=== PATIENT | male | born 1945 | race Two or more races ===

== ENCOUNTER 2019-12-20 13:18 | Inpatient (IN) | payer OTHER ==
[~2019-12-20] VITALS: Ht 180.3 cm; Wt 101.1 kg
[2019-12-20] MEDS ORDERED: cefTRIAXone 1GM/50ML D5W 50 ML IV ONE (13:30)
[2019-12-20] MEDS ORDERED: FUROSEMIDE 40 MG/4 ML VIAL IV ONE (13:30)
[2019-12-20 15:21] LABS: Basophils # (auto) 0 10 ^3/uL (0-0.2); Basophils % (auto) 0.3 % (0.0-2.0); Eosinophils # (auto) 0.1 10 ^3/uL (0-0.8); Hemoglobin 12.6 g/dL (13.5-17.5); Monocytes # (auto) 1.2 10 ^3/uL (0-1.3); White Blood Cell 13.1 10^3/uL (4.4-10.8)
[2019-12-20 15:23] LABS: Eosinophils % (auto) 0.4 % (0.0-7.0); Hematocrit 39.3 % (41.0-53.0); Lymphocytes # (auto) 0.9 10 ^3/uL (0.4-5.4); Lymphocytes % (auto) 6.8 % (10.0-50.0); Mean Corpuscular Hemoglobin 23.8 pg (28.0-32.0); Mean Corpuscular Volume 74.3 fL (80.0-100.0); Monocytes % (auto) 9.4 % (0.0-12.0); Neutrophils # (auto) 10.9 10 ^3/uL (1.6-8.6); Neutrophils % (auto) 83.1 % (37.0-80.0); Nucleated Red Blood Cells % 0.1 %; Platelet Count (auto) 338 10^3/uL (140-450); Red Blood Cells 5.28 10^6/uL (4.5-5.90); Red Cell Distribution Width 16.2 % (11.8-14.3)
[2019-12-20 15:32] LABS: Anion Gap 6 (5-15); Blood Urea Nitrogen 22 mg/dL (7-18); Calcium 8.4 mg/dL (8.5-10.1); Carbon Dioxide 26 mmol/L (21-32); Chloride 99 mmol/L (98-107); Glucose 268 mg/dL (74-106); INR 1.26 (0.9-1.15); Potassium 4.5 mmol/L (3.5-5.1); Sodium 131 mmol/L (136-145)
[2019-12-20 15:40] LABS: Alanine Aminotransferase 32 U/L (16-61); Alkaline Phosphatase 276 U/L (45-117); Aspartate Aminotransferase 31 U/L (15-37); BUN/Creatinine Ratio 29.3; Bilirubin, Total 0.9 mg/dL (0.2-1.0); GFR African American 132 mL/min; GFR Non-African American 109 mL/min; Lactate Dehydrogenase 190 U/L (87-241); Total Protein 7.2 g/dL (6.4-8.2)
[2019-12-20 15:44] LABS: Lactic Acid w/Reflex 2.2 mmol/L (0.4-2.0)
[2019-12-20] MEDS ORDERED: DEXTROSE (50%) 50ML SYRG IV PRN (20:00)
[2019-12-20] MEDS ORDERED: NITROGLYCERIN 0.4 MG SL TAB SL PRN (20:00)
[2019-12-20] MEDS ORDERED: MORPHINE SULF INJ 2 MG/ML SYRINGE 1ML IV PRN (20:00)
[2019-12-20] MEDS ORDERED: hydrALAZINE HCL 20 MG/ML VL IV PRN (20:15)
[2019-12-20] MEDS: dilTIAZem HCL 60 MG TAB PO SCH (20:46)
[2019-12-20] MEDS: RIVAROXABAN 20 MG TAB PO SCH (20:46)
[2019-12-20] MEDS ORDERED: IOHEXOL 350 MG/ML 100ML IJ ONE (20:59)
[2019-12-20 22:00] LABS: Cholesterol 105 mg/dL (< 200)
[2019-12-20] MEDS ORDERED: ALBUTEROL SULF HFA 90MCG INH 200DOSE IN SCH (22:00)
[2019-12-20 22:04] LABS: HDL Cholesterol 27 mg/dL (40-59); LDL Cholesterol 75 mg/dL (< 100); Triglycerides 70 mg/dL (< 150)
[2019-12-20] MEDS: InsuLIN REG 1unit/0.01ml Soln (100units/ml) SC SCH (22:17)
[2019-12-20] MEDS: ACCU-CHEK COMFORT CURVE STRIP VI SCH (22:18)
[2019-12-20] MEDS: FUROSEMIDE 20 MG/2 ML VIAL IV SCH (22:19)
[2019-12-20 23:45] VITALS: BP 136/96
--- NOTE | 2019-12-20 23:45 | NUR ---
Patient arrived from the emergency room to the unit via wheelchair. Patient is AOx4 and ambulatory normally but has 2 wounds, 1 on each foot that currently limits his mobility. He has 3+ pitting edema from the feet up to his scrotum. He does not complain of any pain or shortness of breath at this time. He is currently on 2L NC. Lung sounds are diminished bilaterally. Bed is locked in lowest position with side rails up x2. Will continue to monitor.
--- NOTE | 2019-12-21 00:20 | NUR ---
Pictures taken of both foot wounds and placed in wound care folder. Both wounds were cleansed with wound cleanser. Right foot was wrapped with kerlix and 2 4x4 gauze.. The left foot was secured simply with a band-aid.
[2019-12-21 01:30] VITALS: BP 139/92
--- NOTE | 2019-12-21 01:35 | NUR ---
Charge nurse made aware of patient negative covid result.
[2019-12-21] MEDS: dilTIAZem HCL 60 MG TAB PO SCH ×4 (02:38→20:18)
[2019-12-21] MEDS ORDERED: METF-371 PO (02:58)
[2019-12-21 04:59] VITALS: BP 133/90
[2019-12-21] MEDS: FUROSEMIDE 20 MG/2 ML VIAL IV SCH ×2 (06:36→17:17)
[2019-12-21] MEDS: ACCU-CHEK COMFORT CURVE STRIP VI SCH ×4 (06:38→21:51)
[2019-12-21] MEDS: InsuLIN REG 1unit/0.01ml Soln (100units/ml) SC SCH ×4 (06:47→21:53)
[2019-12-21 08:00] VITALS: BP 138/86
[2019-12-21 08:12] LABS: Basophils # (auto) 0.1 10 ^3/uL (0-0.2); Eosinophils # (auto) 0.1 10 ^3/uL (0-0.8); Lymphocytes # (auto) 1.1 10 ^3/uL (0.4-5.4); Monocytes # (auto) 1.3 10 ^3/uL (0-1.3)
[2019-12-21 08:14] LABS: Basophils % (auto) 0.6 % (0.0-2.0); Eosinophils % (auto) 0.8 % (0.0-7.0); Hematocrit 38.4 % (41.0-53.0); Hemoglobin 12.2 g/dL (13.5-17.5); Lymphocytes % (auto) 8.9 % (10.0-50.0); Mean Corpuscular Hemoglobin 23.8 pg (28.0-32.0); Mean Corpuscular Hgb Conc. 31.7 g/dL (32.0-36.0); Monocytes % (auto) 10.3 % (0.0-12.0); Neutrophils # (auto) 9.8 10 ^3/uL (1.6-8.6); Neutrophils % (auto) 79.4 % (37.0-80.0); Platelet Count (auto) 329 10^3/uL (140-450); Red Blood Cells 5.12 10^6/uL (4.5-5.90); Red Cell Distribution Width 15.9 % (11.8-14.3); White Blood Cell 12.3 10^3/uL (4.4-10.8)
[2019-12-21 08:33] LABS: BUN/Creatinine Ratio 27.3; Calcium 8.5 mg/dL (8.5-10.1); Potassium 3.5 mmol/L (3.5-5.1)
--- NOTE | 2019-12-21 08:45 | NUR ---
CT Angio Received call regarding CT Angio, it will take place once patient is moved off of [facility] unit
[2019-12-21 09:00] VITALS: BP 138/86
[2019-12-21] MEDS: POTASSIUM CHL 20 Meq TABLET PO SCH (09:06)
[2019-12-21] MEDS ORDERED: ENOXAPARIN SOD 40 MG/0.4 ML SYRINGE SC SCH (10:00)
[2019-12-21 10:40] LABS: Urine Bacteria NONE SEEN /hpf (None Seen); Urine Blood Negative /uL (Negative); Urine Specific Gravity 1.007 (1.001-1.035); Urine WBC <1 /hpf (0 - 3)
--- NOTE | 2019-12-21 10:47 | NUR ---
Dr Rascon on unit. Informed doctor of prelim positive blood culture results. No orders at this time.
--- NOTE | 2019-12-21 11:08 | NUR ---
Dr Mahan called, provided info on patient, he will be in this afternoon to see patient
--- NOTE | 2019-12-21 12:42 | NUR ---
WOUND CARE NOTE: Wound care in to see patient per wound care request regarding "wounds to left and right foot" that are noted present on admission. Bedside nurse took photograph of patient's wounds upon admission for reference. Patient is 74 years old male with admitting diagnosis of CHF. Patient is resting in bed in Rm. 249B. Patient is awake, alert and oriented. Patient denies any pain at this time. He's self turning and repositioning and his Jaiden score is 18. Patient noted with 7x10cm Diabetic Foot Ulcer to L plantar heel. Wound is yellow, blistered with (2x5cm) open area at center, minimal serous drainage noted, no odor noted. His L lateral plantar foot also has open draining wound measuring 2x1.5x1cm. Wound bed is dusky red, yaneli wound is yellow hyperkeratotic, moderate purulent drainage noted, no odor noted. Wound culture specimen of Lt foot wound taken and sent to lab for processing. Patient's bilateral foot noted with edema and erythema. Patient reported that wound started when his feet swells,developed blisters and open. Cleansed patient's bilateral foot wounds with wound cleanser, patted dry with gauze, applied Thera honey gel and covered with Opti foam gentle dressing. Patient tolerated well and denies any other wound. RECOMMENDATION: Nursing to continue with Daily/PRN dressing change to bilateral foot wounds per MD order, Podiatry consult, elevate edematous extremity on pillows, continue monitoring by wound care while patient is hospitalized. Addendum: 12/21/19 at 1609 by Ingrid Kemp RN Amended: Links added.
--- NOTE | 2019-12-21 12:45 | NUR ---
Derian foot wounds Informed Dr Forbes wound care has recommended a podiatry consult for bilat foot wounds. Orders received from Dr Forbes and carried out
[2019-12-21 13:00] VITALS: BP 151/96
--- NOTE | 2019-12-21 14:30 | NUR ---
Podiatry consult Dr Howard bedside with patient discussing plan of care. Dr Howard to call Dr Forbes to discuss care. No orders at this time
[2019-12-21] MEDS ORDERED: DIGOXIN (250MCG/ML) 2 ML AMPULE IV ONE (16:45)
--- NOTE | 2019-12-21 17:00 | NUR ---
Received orders from Dr Howard. Orders carried out as received. Addendum: 12/21/19 at 1858 by REGLA BAGLEY RN RN Dr Howard requested to have Xarelto medication held after tonights dose. I spoke to Pharmacy, they have placed a hold on the medication.
[2019-12-21] MEDS: RIVAROXABAN 20 MG TAB PO SCH (17:18)
[2019-12-21] MEDS ORDERED: VANCOMYCIN 1GM/250ML 250 ML IV ONE (17:45)
[2019-12-21] MEDS: PIPERACILLIN-TAZOB 3.375GM 100 ML IV SCH ×2 (18:02→23:34)
--- NOTE | 2019-12-21 20:07 | NUR ---
report called to [facility] pt going to 220A
--- NOTE | 2019-12-21 20:10 | NUR ---
open note assumed care of pt. upon entering room pt awake and alert. pt on 2L nc no distress noted. pt oriented to this nurse and plan of care. pt denies any pain. bed locked, low and 2x rails up. call light in reach, this nurse made pt aware of pending transfer to room 221A with KISHAN Samaniego. pt will have all belongings transferred with him.
--- NOTE | 2019-12-21 20:55 | NUR ---
pt transferred with mask on, and nc at 2L. pt confirmed having all belongings at time of transfer.
--- NOTE | 2019-12-21 21:00 | NUR ---
pt arrived to room 221 bed A, care assumed, pt is alert and oriented, able to communicate needs, no s/s of distress.
[2019-12-21] MEDS: VANCOMYCIN 1GM/250ML 250 ML IV SCH (21:26)
[2019-12-21 22:00] VITALS: BP 159/100
[2019-12-21] MEDS ORDERED: VANCOMYCIN 1GM/250ML 250 ML IV SCH (22:00)
[2019-12-22] MEDS: dilTIAZem HCL 60 MG TAB PO SCH ×4 (02:23→20:15)
[2019-12-22] MEDS: VANCOMYCIN 1GM/250ML 250 ML IV SCH ×3 (04:55→21:55)
[2019-12-22 05:00] VITALS: BP 157/95
[2019-12-22] MEDS: ACCU-CHEK COMFORT CURVE STRIP VI SCH ×4 (06:29→21:58)
[2019-12-22] MEDS: InsuLIN REG 1unit/0.01ml Soln (100units/ml) SC SCH ×4 (06:30→22:02)
[2019-12-22] MEDS: FUROSEMIDE 20 MG/2 ML VIAL IV SCH ×2 (06:53→17:39)
[2019-12-22] MEDS: PIPERACILLIN-TAZOB 3.375GM 100 ML IV SCH ×3 (06:53→17:39)
[2019-12-22 07:28] LABS: Hematocrit 37.7 % (41.0-53.0); Hemoglobin 12.2 g/dL (13.5-17.5); Lymphocytes # (auto) 1.1 10 ^3/uL (0.4-5.4); Mean Corpuscular Hgb Conc. 32.3 g/dL (32.0-36.0); Monocytes # (auto) 1.4 10 ^3/uL (0-1.3); Neutrophils # (auto) 8.8 10 ^3/uL (1.6-8.6); Neutrophils % (auto) 76.6 % (37.0-80.0); Red Blood Cells 5.06 10^6/uL (4.5-5.90); Red Cell Distribution Width 16.1 % (11.8-14.3)
[2019-12-22 07:29] LABS: Basophils # (auto) 0.1 10 ^3/uL (0-0.2); Basophils % (auto) 0.6 % (0.0-2.0); Eosinophils # (auto) 0.2 10 ^3/uL (0-0.8); Eosinophils % (auto) 1.3 % (0.0-7.0); Lymphocytes % (auto) 9.5 % (10.0-50.0); Mean Corpuscular Hemoglobin 24.1 pg (28.0-32.0); Mean Corpuscular Volume 74.5 fL (80.0-100.0); Platelet Count (auto) 333 10^3/uL (140-450); White Blood Cell 11.6 10^3/uL (4.4-10.8)
[2019-12-22 07:36] LABS: BUN/Creatinine Ratio 19.7; Calcium 8.4 mg/dL (8.5-10.1); Magnesium 1.5 mg/dL (1.6-2.6); Potassium 3.4 mmol/L (3.5-5.1)
[2019-12-22 07:53] LABS: INR 1.63 (0.9-1.15)
[2019-12-22 08:00] VITALS: BP 122/62
--- NOTE | 2019-12-22 08:35 | NUR ---
DR. SHAW AT BEDSIDE. POC DISCUSSED WITH PT.
[2019-12-22] MEDS ORDERED: metOLazone 5 MG TAB PO ONE (08:45)
[2019-12-22] MEDS ORDERED: SPIRONOLACTONE 25 MG TAB PO ONE (08:45)
[2019-12-22] MEDS: POTASSIUM CHL 20 Meq TABLET PO SCH (08:47)
--- NOTE | 2019-12-22 08:50 | NUR ---
PT OFF UNIT TO US FOR THORACENTESIS.
[2019-12-22 08:59] VITALS: BP 152/97
--- NOTE | 2019-12-22 09:05 | NUR ---
DR. SHAW AT BEDSIDE. POC DISCUSSED WITH PT. Addendum: 12/22/19 at 1917 by Carmelo Mcleod RN RN PLEASE DISREGARD THIS NOTE, WRONG TIME.
--- NOTE | 2019-12-22 09:23 | NUR ---
PATIENT IN [place] FOR THORACENTESIS [place] BED ON PORTABLE O2 @ 2L/NC CONSENT FOR PROCEDURE SIGNED AND PATIENT VERBALIZES UNDERSTANDING OF RISKS/BENEFITS OF PROCEDURE PRE-PROCEDURE VS HR 93 RR 12 SAO2 95% BP 143/87 0930 HR 92 RR 18 SAO2 96% BP 144/84 0940 HR 88 RR 34 SAO2 91% BP 98/45 O2 INCREASED TO 3L PER NC PROCEDURE STOPPED DUE TO PATIENT COUGHING 1950 ML CLOUDY BLAKE LIQUID OBTAINED PCXR COMPLETED POST VS HR 88 RR 27 SAO2 95% BP 122/87 NO FURTHER COUGHING NOTED
[2019-12-22] MEDS ORDERED: VANCOMYCIN PER PHARMACY 0 MG IV SCH (10:00)
--- NOTE | 2019-12-22 12:00 | NUR ---
PT BACK TO ROOM S/P THORACENTESIS, 2L WAS REMOVED PER WEB DESIGN SPECIALIST. VS: 98.2, 120/62, 88, 20, 98% ON RA, 0/10. WILL CONTINUE TO MONITOR.
[2019-12-22 13:01] VITALS: BP 132/76
--- NOTE | 2019-12-22 13:56 | NUR ---
Est energy needs 2021-0556 kcal (20-25 kcal/kg IBW 78.2kg) Est protein needs 78-94g (1-1.2g/kg IBW 78.2kg) Will reassess prn. Addendum: 12/22/19 at [address] Amended: Links added.
[2019-12-22] MEDS ORDERED: POTASSIUM CHL 20 Meq TABLET PO ONE (14:15)
[2019-12-22] MEDS: MAGNESIUM SULFATE 1GM/100ML 100 ML IV SCH (15:04)
--- NOTE | 2019-12-22 16:25 | NUR ---
US TECH AT BEDSIDE FOR ECHO.
[2019-12-22 17:14] VITALS: BP 140/91
--- NOTE | 2019-12-22 17:30 | NUR ---
CONSENT FOR I&D SIGNED, CONSENT PLACED IN HARD CHART.
[2019-12-22 22:00] VITALS: BP 131/88
[2019-12-23] MEDS ORDERED: MAGNESIUM SULFATE 1GM/100ML 100 ML IV ONE (02:05)
[2019-12-23] MEDS: dilTIAZem HCL 60 MG TAB PO SCH ×3 (02:15→13:37)
[2019-12-23 05:00] VITALS: BP 144/86
[2019-12-23] MEDS: VANCOMYCIN 1GM/250ML 250 ML IV SCH ×2 (05:00→13:54)
[2019-12-23] MEDS: MAGNESIUM SULFATE 1GM/100ML 100 ML IV SCH (05:12)
[2019-12-23] MEDS: InsuLIN REG 1unit/0.01ml Soln (100units/ml) SC SCH ×3 (06:30→18:15)
[2019-12-23] MEDS: ACCU-CHEK COMFORT CURVE STRIP VI SCH ×3 (06:30→17:55)
[2019-12-23] MEDS: FUROSEMIDE 20 MG/2 ML VIAL IV SCH (06:38)
--- NOTE | 2019-12-23 06:45 | NUR ---
pt moved to preop, nurse updated. Pt calm, no s/s of distress, chart with pt. property at bedside
[2019-12-23] MEDS ORDERED: DAKINS HALF STR 0.25% (NaHypochlorite) 473 ML TOPICAL SOL TOP ONE (07:45)
--- NOTE | 2019-12-23 08:00 | NUR ---
Patient off unit at this time.
--- NOTE | 2019-12-23 08:18 | NUR ---
Paged Dr. Mahan for cardiac clearance prior to podiatry surgery. Spoke to Maria Eugenia; awaiting call back.
[2019-12-23] MEDS ORDERED: BACITRACIN INJ 50000 UNIT VIAL ONE (08:22)
[2019-12-23] MEDS ORDERED: MIDAZOLAM HCL 1MG/1ML-2 ML VIAL ONE (08:57)
[2019-12-23] MEDS ORDERED: fentaNYL CITRATE 100 MCG/2 ML VL ONE (08:57)
[2019-12-23] MEDS ORDERED: MEPERIDINE HCL (25 MG/ML) 1ML VIAL ONE (08:57)
[2019-12-23] MEDS ORDERED: BUPIVACAINE 0.25% INJ 50ML VIAL ONE (09:02)
[2019-12-23] MEDS ORDERED: HYDROGEL 60 GRAM GEL TOP ONE (10:00)
[2019-12-23] MEDS ORDERED: PROPOFOL 10 MG/ML 20 ML IV ONE (10:18)
[2019-12-23] MEDS ORDERED: DexAMETHasone SOD PHOS 10MG/1ML VIAL INJ ONE (10:18)
[2019-12-23] MEDS ORDERED: LABETALOL HCL 5 MG/ML 4ML SYRINGE IV PRN (11:15)
[2019-12-23] MEDS ORDERED: ONDANSETRON HCL 4 MG/2 ML VIAL IV PRN (11:15)
[2019-12-23] MEDS ORDERED: ACCU-CHEK COMFORT CURVE STRIP VI ONE (11:15)
[2019-12-23] MEDS ORDERED: ePHEDrine SULFATE 50 MG/ML AMP IV PRN (11:15)
[2019-12-23] MEDS ORDERED: MORPHINE SULFATE 4 MG/ML SYR/VIAL IV PRN (11:15)
--- NOTE | 2019-12-23 11:59 | NUR ---
PATIENT BACK FROM OR: PATIENT RETURNED FROM OR, DRESSINGS TO BILATERAL FEET ARE CLEAN DRY AND INTACT, NO COMPLAINT OF PAIN, CALL LIGHT WITHIN REACH, BED IN LOWEST POSITION, BED ALARM ON, PATIENT ENCOURAGED TO CALL WITH ANY QUESTIONS OR CONCERNS.
--- NOTE | 2019-12-23 12:09 | NUR ---
DR. SHAW: PER DR. SHAW HE IS OK WITH PATIENT GOING HOME WILL NEED TO FOLLOW UP WITH HIM IN 2-3 WEEKS, HE WILL REVIEW PATIENT CHART AND PRESCRIBE ANY NECESSARY MEDICATIONS FOR HEART FAILURE.
[2019-12-23] MEDS: PIPERACILLIN-TAZOB 3.375GM 100 ML IV SCH ×2 (13:06)
[2019-12-23] MEDS: POTASSIUM CHL 20 Meq TABLET PO SCH (13:06)
[2019-12-23 13:14] LABS: Basophils # (auto) 0 10 ^3/uL (0-0.2); Eosinophils # (auto) 0 10 ^3/uL (0-0.8); Lymphocytes # (auto) 0.6 10 ^3/uL (0.4-5.4); Red Cell Distribution Width 16.4 % (11.8-14.3)
[2019-12-23 13:15] LABS: Basophils % (auto) 0.3 % (0.0-2.0); Eosinophils % (auto) 0.2 % (0.0-7.0); Hematocrit 44.5 % (41.0-53.0); Hemoglobin 14.1 g/dL (13.5-17.5); Lymphocytes % (auto) 5.5 % (10.0-50.0); Mean Corpuscular Hemoglobin 23.7 pg (28.0-32.0); Mean Corpuscular Hgb Conc. 31.7 g/dL (32.0-36.0); Mean Corpuscular Volume 74.9 fL (80.0-100.0); Monocytes # (auto) 0.3 10 ^3/uL (0-1.3); Neutrophils # (auto) 10.4 10 ^3/uL (1.6-8.6); Platelet Count (auto) 375 10^3/uL (140-450); Red Blood Cells 5.95 10^6/uL (4.5-5.90); White Blood Cell 11.5 10^3/uL (4.4-10.8)
[2019-12-23 13:33] LABS: BUN/Creatinine Ratio 9.4; Calcium 8.9 mg/dL (8.5-10.1); Magnesium 1.9 mg/dL (1.6-2.6); Potassium 3.7 mmol/L (3.5-5.1)
[2019-12-23 13:36] LABS: INR 1.46 (0.9-1.15)
[2019-12-23 13:59] VITALS: BP 146/76
[2019-12-23 15:45] VITALS: BP 150/91
[2019-12-23 17:00] VITALS: BP 140/82
--- NOTE | 2019-12-23 17:55 | NUR ---
Discharge instructions Both written and verbal discharge instructions given to patient. Patient verbalized understanding of instructions. Written prescription given as well. All belongings with patient. Peripheral IV removed intact with no active bleeding. Patient tolerated well. Reading material also given regarding care for diabetes, COVID 19, and thoracentesis after care. Patient stable.
--- NOTE | 2019-12-23 18:10 | NUR ---
Patient stable with Dr. Guillen at bedside to change dressing on right foot. Patient tolerated well. Checked blood sugar: 382 mg/dl - covered per sliding scale. Patient stable.
--- NOTE | 2019-12-23 18:25 | NUR ---
Discharge Patient discharged to home in stable condition. Patient taken to lobby via wheelchair.
== END 2019-12-23 18:30 | disposition home health service (06) | DRG 240 ==
LOC: ER 13:18 → EDBD 13:18 → TELE 13:19 → TELE-EAST 23:35 → TELE-CENTR 12-21 21:00
PROVIDERS: ADMIT Hospitalist; ATTEND Hospitalist
PROC: 0W993ZZ Drainage of Right Pleural Cavity, Percutaneous Approach (ICD-10-PCS; 2019-12-22)
PROC: 0Y6N0ZF Detachment at Left Foot, Partial 5th Ray, Open Approach (ICD-10-PCS; principal; 2019-12-23 09:07)
PROC: 0YBM0ZZ Excision of Right Foot, Open Approach (ICD-10-PCS; 2019-12-23 09:07)
DX: I11.0 Hypertensive heart disease with heart failure (principal); L02.611 Cutaneous abscess of right foot; M00.9 Pyogenic arthritis, unspecified; M86.8X7 Other osteomyelitis, ankle and foot; I50.43 Acute on chronic combined systolic (congestive) and diastolic (congestive) heart failure; E11.51 Type 2 diabetes mellitus with diabetic peripheral angiopathy without gangrene; E11.621 Type 2 diabetes mellitus with foot ulcer; E11.69 Type 2 diabetes mellitus with other specified complication; E66.9 Obesity, unspecified; I48.91 Unspecified atrial fibrillation; L97.519 Non-pressure chronic ulcer of other part of right foot with unspecified severity; Z20.828 Contact with and (suspected) exposure to other viral communicable diseases; L97.529 Non-pressure chronic ulcer of other part of left foot with unspecified severity; Z79.01 Long term (current) use of anticoagulants; Z79.899 Other long term (current) drug therapy; Z89.432 Acquired absence of left foot; I25.2 Old myocardial infarction; Z68.31 Body mass index [BMI] 31.0-31.9, adult
CPT/HCPCS: 10022; 36415; 71045; 71275; 73718; 73721; 76942; 80048; 80053; 80061; 80202; 81001; 82728; 82962; 83036; 83605; 83615; 83735; 83880; 83986; 84484; 85025; 85379; 85610; 85730; 86141; 86850; 86900; 86901; 87040; 87070; 87077; 87186; 87205; 89051; 93005; 93306; 93925; 99291; G0378; J0696; J1100; J1815; J2250; J2543; J2704; J3490